=== PATIENT | female | born 1965 | race Caucasian/White ===

== ENCOUNTER 2020-04-24 16:27 | Emergency (ER) | payer OTHER, SELFPAY ==
[2020-04-24 16:32] VITALS: BP 199/92; PULSE 87; RESP 14; TEMP 36.7; O2SAT 98; BMI 26.5
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
[2020-04-24 17:21] VITALS: BP 188/89; PULSE 87; RESP 16; O2SAT 100
[2020-04-24] MEDS: ketorolac 30 mg/mL INJ IM (18:00)
== END 2020-04-24 18:06 | disposition home or self-care (01) ==
PROVIDERS: Emergency Provider Family Medicine
DX: S09.8XXA Other specified injuries of head, initial encounter (principal); Y04.2XXA Assault by strike against or bumped into by another person, initial encounter
CPT/HCPCS: 12345; 70450; 96372; 99282; 99283; J1885

== ENCOUNTER 2021-03-28 13:11 | Emergency (ER) | payer OTHER, SELFPAY ==
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
[2021-03-28 13:41] VITALS: BP 143/115; PULSE 76; RESP 16; TEMP 36.3; O2SAT 97; BMI 35.4
[2021-03-28 13:56] VITALS: BP 130/80; PULSE 99; RESP 16; TEMP 36.5; O2SAT 100
== END 2021-03-28 13:59 | disposition home or self-care (01) ==
LOC: ER 06-22 11:05
PROVIDERS: Emergency Provider Physician Assistant
DX: Z04.2 Encounter for examination and observation following work accident (principal); Y04.2XXA Assault by strike against or bumped into by another person, initial encounter; Y92.230 Patient room in hospital as the place of occurrence of the external cause; Y99.0 Civilian activity done for income or pay
CPT/HCPCS: 99281

== ENCOUNTER → 2021-12-11 10:01 | Outpatient (BNVA) | payer OTHER, SELFPAY | PROVIDERS: Visit Provider Nurse Practitioner Family | DX: Z12.11 Encounter for screening for malignant neoplasm of colon (principal); R53.83 Other fatigue; E03.9 Hypothyroidism, unspecified; Z13.1 Encounter for screening for diabetes mellitus; Z13.6 Encounter for screening for cardiovascular disorders; I10 Essential (primary) hypertension; E78.5 Hyperlipidemia, unspecified; Z76.89 Persons encountering health services in other specified circumstances | CPT/HCPCS: 80053; 80061; 82306; 82607; 82728; 82746; 83550; 84443 ==

== ENCOUNTER → 2023-01-26 10:18 | Outpatient (BNVA) | payer OTHER, SELFPAY | PROVIDERS: PCP Family Medicine; Visit Provider Family Medicine | DX: R73.03 Prediabetes (principal); E78.5 Hyperlipidemia, unspecified; I10 Essential (primary) hypertension; E66.9 Obesity, unspecified; K21.9 Gastro-esophageal reflux disease without esophagitis | CPT/HCPCS: 80053; 80061; 82306; 83036; 83721; 84443; 85025 ==

== ENCOUNTER → 2023-07-12 08:38 | Outpatient (BNVA) | payer OTHER, SELFPAY | PROVIDERS: PCP Family Medicine; Visit Provider Family Medicine | DX: J98.4 Other disorders of lung (principal); J04.0 Acute laryngitis; R01.2 Other cardiac sounds | CPT/HCPCS: 71045 ==

== ENCOUNTER 2023-07-12 09:20 | Outpatient (CLI) | payer OTHER, SELFPAY ==
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
== END 2023-07-12 09:21 | disposition home or self-care (01) ==
LOC: RAD 09:20
PROVIDERS: PCP Family Medicine; Visit Provider Family Medicine
DX: R01.2 Other cardiac sounds (principal); E78.5 Hyperlipidemia, unspecified; R07.9 Chest pain, unspecified; I34.0 Nonrheumatic mitral (valve) insufficiency; I35.1 Nonrheumatic aortic (valve) insufficiency; I07.1 Rheumatic tricuspid insufficiency
CPT/HCPCS: 93306

== ENCOUNTER 2023-08-03 07:04 | Outpatient (CLI) | payer OTHER, SELFPAY ==
[2023-08-03 07:45] VITALS: PULSE 72; RESP 18
[2023-08-03] MEDS: albuterol 2.5 mg/3 mL Neb INHALATION (07:45)
== END 2023-08-03 07:05 | disposition home or self-care (01) ==
LOC: RT 07:05
PROVIDERS: PCP Family Medicine; Visit Provider Internal Medicine Pulmonary Disease
DX: R06.09 Other forms of dyspnea (principal); R94.2 Abnormal results of pulmonary function studies
CPT/HCPCS: 94060; 94726; 94729; J7613

== ENCOUNTER 2023-08-30 10:41 | Outpatient (RCR) | payer OTHER, SELFPAY | END 2023-09-01 23:59 | disposition home or self-care (01) | LOC: SST 10:41 | PROVIDERS: PCP Family Medicine; Visit Provider Otolaryngology | DX: J37.0 Chronic laryngitis (principal); R49.0 Dysphonia; R06.09 Other forms of dyspnea | CPT/HCPCS: 92524 ==

== ENCOUNTER → 2023-09-02 12:30 | Outpatient (BNVA) | payer OTHER, SELFPAY | PROVIDERS: PCP Family Medicine; Visit Provider Internal Medicine Pulmonary Disease | DX: J98.4 Other disorders of lung (principal) | CPT/HCPCS: 36415; 85651; 86038; 86140; 86200; 86225; 86235; 86431 ==

== ENCOUNTER 2023-09-19 08:45 | Outpatient (RCR) | payer OTHER, SELFPAY | END 2023-10-02 23:59 | disposition home or self-care (01) | LOC: SST 08:45 | PROVIDERS: PCP Family Medicine; Visit Provider Otolaryngology | DX: J37.0 Chronic laryngitis (principal); R49.0 Dysphonia; R06.09 Other forms of dyspnea | CPT/HCPCS: 92507 ==

== ENCOUNTER 2023-09-26 13:58 | Outpatient (CLI) | payer OTHER, SELFPAY ==
--- NOTE | 2023-09-26 14:30 | CT_ITS ---
WS: [id number] CT CHEST TECHNIQUE: Noncontrast high-resolution CT of the chest with coronal and sagittal reformatted images. CLINICAL INFORMATION: HRCT COMPARISON: None. DLP: 1360.[address] scans at [facility] use at least one of these dose optimization techniques: automated e xposure control; mA and/or kV adjustment per patient size (includes targeted exams where dose is matc hed to clinical indication); or iterative reconstruction. FINDINGS: Lungs are well aerated. No evidence of interstitial lung disease. No evidence of honeycombi ng. Slight subsegmental atelectasis RIGHT lower lobe medially. Noncalcified nodule LEFT lower lobe me dially measuring 5 mm. Calcified granuloma LEFT lower lobe. Normal caliber thoracic aorta. Aortic calcification. Coronary calcification. No mediastinal or hilar lymphadenopathy. No axillary lymphadenopathy. Adrenal glands are normal. Small esophageal hiatal hernia. IMPRESSION: 1. No evidence of interstitial lung disease. 2. Noncalcified nodule LEFT lower lobe medially measuring 5 mm. Recommend 12-month follow-up. 3. Small esophageal hiatal hernia.
== END 2023-09-26 13:59 | disposition home or self-care (01) ==
LOC: RAD 13:59
PROVIDERS: PCP Family Medicine; Visit Provider Internal Medicine Pulmonary Disease
DX: J98.4 Other disorders of lung (principal); R91.1 Solitary pulmonary nodule; K44.9 Diaphragmatic hernia without obstruction or gangrene
CPT/HCPCS: 71250

== ENCOUNTER 2023-10-03 06:00 | Outpatient (RCR) | payer OTHER, SELFPAY | END 2023-10-14 23:59 | disposition home or self-care (01) | LOC: SST 06:00 | PROVIDERS: PCP Family Medicine; Visit Provider Otolaryngology | DX: J37.0 Chronic laryngitis (principal); R49.0 Dysphonia; R06.09 Other forms of dyspnea | CPT/HCPCS: 92507 ==

== ENCOUNTER 2023-10-13 16:39 | Outpatient (CLI) | payer OTHER, SELFPAY ==
--- NOTE | 2023-10-13 17:00 | CT_ITS ---
WS: [id number] CT PARANASAL SINUSES HISTORY: sinus problems TECHNIQUE: Contiguous 2.5 mm axial images obtained through the sinuses. Images are reconstructed in s agittal and coronal planes. All CT scans at [facility] use at least one of these dose optimiz ation techniques: automated exposure control; mA and/or kV adjustment per patient size (includes targ eted exams where dose is matched to clinical indication); or iterative reconstruction. DLP: 349.76 mGy.cm COMPARISON: None available. Frontal sinuses: Normal. Sphenoid sinus: Normal. Ethmoid sinuses: Well opacified. Frontal ethmoid recess is patent. No disease. Maxillary sinus: There is a small soft tissue septum to the RIGHT maxillary sinus. There is a additio nal fibrous septum the posterior LEFT maxillary sinus. No mass. Ostiomeatal unit: Ostiomeatal units are patent. There is a very small amount of soft tissue thickenin g involving the RIGHT ostiomeatal unit but there is no obstruction. RIGHT deviation of the nasal septum with a small bony spur. Conchal bullosa bilateral middle turbinat es. Monica yosvany appears appropriate. No sinus or wall defects. Mild atrophy frontal lobes. IMPRESSION: 1. No significant sinus disease or air-fluid levels. 2. RIGHT deviation of the nasal septum with a very small bony spur. 3. Ostiomeatal units are patent.
== END 2023-10-13 16:40 | disposition home or self-care (01) ==
PROVIDERS: PCP Family Medicine; Visit Provider Otolaryngology
DX: J34.2 Deviated nasal septum (principal); J34.89 Other specified disorders of nose and nasal sinuses
CPT/HCPCS: 70486

== ENCOUNTER 2023-11-09 11:05 | Day surgery (SDC) | payer OTHER, SELFPAY ==
[2023-11-09] VITALS (12 sets, daily range): BP systolic 131–183; BP diastolic 69–100; PULSE 65–103; RESP 14–24; TEMP 36.4–36.9; O2SAT 91–100; BMI 36.3
--- NOTE | 2023-11-09 11:42 | W.PM.OPSUD ---
Surgery/Procedure H&P Update DATE OF PROCEDURE: November 09, 2023 DATE H&P PERFORMED: 10/25/23 H&P UPDATE INFORMATION: I have reviewed H&P completed within last 30 days, I have examined patient prior to procedure and No changes to prior documentation CHANGES TO PREVIOUS DOCUMENTATION: No changes PREOP DIAGNOSIS: Chronic hoarseness/bilateral vocal cord lesions PRIMARY INDICATION FOR PROCEDURE: Chronic hoarseness with vocal cord lesions PLANNED PROCEDURE: Operation Date: 11/09/23 12:40 Proposed Procedures p Direct Laryngoscopy Direct Larynoscopy w/ Excision 2 Vocal Cord Lesion(Not Applicable) - Nick Henao MD
[2023-11-09] MEDS: sodium chloride 0.9% 1,000 ML 30 ML IV (11:50)
[2023-11-09] MEDS: albuterol 2.5 mg/3 mL Neb (11:50)
[2023-11-09] MEDS: midazolam 1 mg/mL INJ 2 mL 2 MG IVP (12:50)
--- NOTE | 2023-11-09 13:00 | ANES.PREANE2 ---
Pre-Anesthetic Assessment Height/Weight: Height 1.6 m Weight 92.986 kg Temp Pulse Resp BP Pulse Ox O2 Del Method 97.8 F 65 18 160/100 97 Room Air 11/09/23 11:24 11/09/23 11:24 11/09/23 11:24 11/09/23 11:24 11/09/23 11:24 11/09/23 11:27 Preop Diagnosis: Chronic hoarseness/bilateral vocal cord lesions Operation Date: 11/09/23 12:40 Proposed Procedures p Direct Laryngoscopy Direct Larynoscopy w/ Excision 2 Vocal Cord Lesion(Not Applicable) - Nick Henao MD Familial anesthetic complications: None Was Beta Marilyn taken within 24 hours: N/A Was Clonidine taken within 24 hours: N/A Last intake: > 8 hrs Social No alcohol and No tobacco Exam alert, oriented x 3, clear to auscultation bilaterally and regular rate & rhythm Airway Mallampati: Class II Dentition: other (no teeth) CV/HEM Hypertension Metabolic Morbid Obesity Anesthetic Plan ASA status: 2 Anesthesia: General Risk of > 500 ml blood loss (7ml/kg in children): No Medications/Allergies Home Medications Medication Instructions Recorded Confirmed Last Taken Type hydrochlorothiazide 12.5 mg capsule See Rx Instructions .Route 01/26/23 11/08/23 11/09/23 06:00 Rx .COMPLEX #90 caps meloxicam 15 mg tablet 15 mg PO DAILY #30 tabs 01/26/23 11/08/23 11/09/23 06:00 Rx pantoprazole 40 mg tablet,delayed See Rx Instructions .Route 01/26/23 11/08/23 11/09/23 06:00 Rx release .COMPLEX #90 tabs albuterol sulfate 90 mcg/actuation 1 inh inhalation QID PRN shortness 07/18/23 11/08/23 11/08/23 Rx aerosol inhaler (Ventolin HFA) of breath or wheezing #8.5 grams tiotropium bromide 18 mcg capsule 1 cap inhalation DAILY #60 09/02/23 11/08/23 11/08/23 Rx with inhalation device (Spiriva inhalations with HandiHaler) fluoxetine 10 mg capsule See Rx Instructions .Route 10/10/23 11/08/23 11/09/23 06:00 Rx .COMPLEX #30 caps buspirone 10 mg tablet See Rx Instructions .Route 10/26/23 11/08/23 11/09/23 06:00 Rx .COMPLEX #60 tabs Allergies Allergy/AdvReac Type Severity Reaction Status Date / Time No Known Allergies Allergy Verified 11/09/23 11:14 Current Medications Generic Name Dose Route Start Last Admin Trade Name Freq PRN Reason Stop Dose Admin Sodium Chloride 1,000 mls @ 30 mls/hr 11/09/23 11:15 11/09/23 11:50 Sodium Chloride 0.9% IV 11/10/23 11:14 30 mls/hr .Q24H LIUDMILA Administration Midazolam HCl 2 mg 11/09/23 11:11 11/09/23 12:50 Midazolam 1 Mg/Ml Inj 2 Ml IVP 2 mg Q5M PRN Administration Preop Anxiety PFSH Anesthesia Medical History History of sterilization procedure Surgical History H/O bilateral salpingectomy History of delivery Family History Father CAD (coronary artery disease) Grandmother Stroke Mother Hypertension Diabetes Grandfather Cancer Prostate CA Dx later in life. Social History Smoking and tobacco/nicotine status: former use of tobacco/nicotine Quit status (tobacco/nicotine): has tried quititng Alcohol intake: never Substance/Drug Use: never Lives independently: Yes Marital status: Number of children: 2 Current occupational status: employed Current occupation: [employer] Current gender identity: Female Female Reproductive History Spontaneous abortions: No Data Anesthesia Cardiac Studies: Echocardiogram 07/12/23
[2023-11-09] MEDS: ceFAZolin 2,000 MG in sodium chloride 0.9% (plus) 50 ML 100 MG IV (13:28)
--- NOTE | 2023-11-09 14:13 | PM.OP ---
Operative Report Date of procedure: November 09, 2023 Pre-op diagnosis: Chronic hoarseness with vocal cord lesion Post-op diagnosis: Same Post-op findings: Left true vocal cord Rienke's space edema with polyp. Right true vocal cord normal. Anterior commissure normal. Procedure done: Direct suspension microscopic laryngoscopy with stripping of left true vocal cord lesion Implants: No implants Specimens removed/disposition: Left true vocal cord lesion Pathology: Left true vocal cord lesion Surgeon: Nick Henao MD Anesthesia: General and Local Estimated blood loss: 5 mL Complications: No complications encountered Findings: Patient has had chronic hoarseness and on flexible laryngoscopy abnormality noted of true vocal cords and possibly anterior commissure as well. Being brought to the operating room at this time to undergo direct suspension microscopic laryngoscopy and biopsy as warranted. Brief History: 58-year-old female patient with chronic hoarseness noted on flexible exam to have abnormal true vocal cords. Being brought to the operating room at this time to undergo direct suspension microscopic laryngoscopy and biopsy. The procedure its risks and complications were explained in detail. Informed consent was granted. The risks include bleeding and infection and scarring and swelling and bruising and persistent hoarseness and need for additional treatment as well as anesthetic risks. Informed consent was granted and witnessed. Procedure: Description of procedure: The patient was placed on the operating table in supine position. Adequate general endotracheal tube anesthesia was obtained. The table was rotated 90 degrees. Head was dropped 15 degrees to the horizontal. Eyes were taped shut and a head drape was applied in usual fashion. The patient received Ancef IV for prophylaxis and Decadron to help with postoperative edema. A timeout was accomplished identifying the patient and date of and planned procedure and allergies and fire risk and medications given. With all in agreement the procedure continued. A tooth guard was placed over the patient's upper gingiva. An anterior commissure laryngoscope was inserted and used to examine the larynx. All was normal with the exception of what was found to be a fleshy yellowish mass of the left central true vocal cord area. The right cord was normal and the anterior commissure was normal. The arytenoid areas were normal. The scope was then suspended from a Terry stand. With microscope brought in visualization was noted and the mass involving the left true vocal cord was grasped and the mass was stripped of the left vocal cord. There was significant Ranke's space edema noted as well as the polyp of the cord. There was nothing suspicious to be a malignancy. Multiple specimens were accomplished with the cup forceps. Bleeding was controlled with a cottonoids soaked in one-to-one thousand epinephrine. Then an LTA with 1% lidocaine was dispensed to the larynx and glottic area and subglottic area. The cottonoid was removed. No bleeding was encountered. The area was suctioned. The scope was taken down from suspension and removed. Examination with the scope being removed did not reveal any other pathology. The throat was suctioned with Yankauer suction. The tooth guard was removed. Head drape and tape were removed. Patient was then returned to the anesthesiologist with head in normal position for wake-up and extubation. She tolerated the procedure well and had an estimated blood loss of 5 mL or less. Arrived in recovery in stable condition.
[2023-11-09] MEDS: EPINEPHrine 1 mg/mL INJ XX (14:17)
[2023-11-09] MEDS: fentaNYL 50 mcg/mL INJ 2mL IVP (14:29)
--- NOTE | 2023-11-09 15:45 | ANE.PACU2 ---
Inpatient post-anesthesia follow up: Airway intact: Yes Vital signs: Temperature 98.5 F Pulse Rate 70 Respiratory Rate 17 Blood Pressure 141/78 Pulse Oximetry 92 Oxygen Delivery Me thod Room Air Oxygen Flow Rate 2 Fraction of Inspir ed Oxygen Hydration adequate: Yes Nausea and vomiting: No Pain level: 1 Mental status: Baseline
== END 2023-11-09 15:45 | disposition home or self-care (01) ==
PROVIDERS: PCP Family Medicine; Visit Provider Otolaryngology
PROC: 0CJS8ZZ Inspection of Larynx, Via Natural or Artificial Opening Endoscopic (ICD-10-PCS; CPT 31541; principal; 2023-11-09 12:30)
DX: J38.1 Polyp of vocal cord and larynx (principal)
CPT/HCPCS: 31541; 88305; J0171; J0330; J0690; J1100; J2250; J2405; J2704; J2710; J3010; J3490; J7030; J7613

== ENCOUNTER → 2024-02-14 08:56 | Outpatient (BNVA) | payer SELFPAY | PROVIDERS: PCP Family Medicine; Visit Provider Family Medicine | DX: E55.9 Vitamin D deficiency, unspecified (principal); I10 Essential (primary) hypertension; J37.0 Chronic laryngitis; J98.4 Other disorders of lung; R06.09 Other forms of dyspnea; F41.1 Generalized anxiety disorder | CPT/HCPCS: 80053; 80061; 82306; 82607; 83721; 84439; 84443 ==

== ENCOUNTER 2024-09-25 14:22 | Emergency (ER) | payer OTHER, SELFPAY ==
[2024-09-25 14:25] VITALS: BP 165/85; PULSE 80; RESP 17; TEMP 36.7; O2SAT 93; BMI 35.4
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
[2024-09-25 15:43] LABS: Basophils % 0.5 %; Eosinophils % 0.5 %; Lymphocytes # 2.3 10^3/uL (0.8-4.8); Lymphocytes % 26.3 %; Mean Corpuscular HGB Conc 32.6 g/dL (30-55); Mean Corpuscular Hemoglobin 28.3 pg (27-33); Mean Platelet Volume 10.5 fL (7.4-10.4); Monocytes % 10.7 %; Neutrophils # 5.48 10^3/uL (1.8-7.7); Neutrophils % 61.7 %; Nucleated Red Blood Cells % 0 %; Platelet Count 268 10^3/cmm (157-399); Red Blood Count 4.94 10^6/uL (3.85-5.65); Red Cell Distribution Width 12.7 % (12.1-15.1); White Blood Count 8.87 10^3/uL (3.29-11.43)
[2024-09-25 16:07] LABS: Alanine Aminotransferase 46 U/L (0-33); Albumin Level 4.2 g/dL (3.5-5.2); Alkaline Phosphatase 131 U/L (35-105); Anion Gap 13.5 (5-19); Aspartate Amino Transferase 28 U/L (0-32); Blood Urea Nitrogen 13 mg/dL (6-20); Calcium 9.1 mg/dL (8.5-10.5); Carbon Dioxide 28 mmol/L (22-29); Chloride 100 mmol/L (98-107); Creatinine Clr Calc Pharmacy 109.2728; Globulin 3.1 g/dL (1.3-4.6); Glomerular Filtration Rate 102.7 mL/min (90-130); Glucose 106 mg/dL (65-115); Osmolality Calculated 287 mOsm/kg (285-295); Potassium 3.5 mmol/L (3.5-5.1); Sodium 138 mmol/L (136-145); Total Bilirubin 0.2 mg/dL (0.15-1.2); Total Protein 7.3 g/dL (6.6-8.7)
[2024-09-25 17:04] VITALS: BP 148/75; PULSE 72; RESP 16; O2SAT 95
[2024-09-25 17:34] VITALS: BP 148/78; PULSE 65; RESP 16; O2SAT 96
== END 2024-09-25 17:29 | disposition home or self-care (01) ==
PROVIDERS: Emergency Provider Family Medicine; PCP Family Medicine
DX: R49.0 Dysphonia (principal); M54.2 Cervicalgia; T71.9XXA Asphyxiation due to unspecified cause, initial encounter; Z87.891 Personal history of nicotine dependence; Y04.8XXA Assault by other bodily force, initial encounter
CPT/HCPCS: 36415; 70491; 72125; 80053; 85025; 99284

== ENCOUNTER 2024-12-03 12:47 | Outpatient (CLI) | payer OTHER, SELFPAY ==
--- NOTE | 2024-12-03 | ECG_ITS ---
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 Interpretive Statements EXERCISE STRESS TEST: EXERCISE DATA: The patient was exercised by Gonzalo protocol. Baseline heart rate was 64 beats per minute. Baseline blood pressure was 154/86 millimeters of mercury. Maximal predicted heart rate was 161 beats per minute. Maximum heart rate achieved was 161, which was 103% of the maximum predicted heart rate. Maximum blood pressure was 198/114 millimeters of mercury. Total exercise time was 6 minutes. Maximum METs achieved was 7.0 The reason for ending the test was maximal effort achieved. The patient complained of shortness of breath during the stress test, which then resolved at the end of the test. ELECTROCARDIOGRAM: BASELINE: Showed sinus rhythm, normal axis, no significant ST-T changes at the baseline noted. [] EXERCISE: At the peak exercise level, [] No significant ST-T changes suggestive of ischemia noted. [] RECOVERY: During the recovery period, heart rate dropped appropriately. No significant ST-T changes in the recovery suggestive of ischemia noted. [] CONCLUSION: 1. Exercise capacity is fair 2. Heart rate response was appropriate 3. Blood pressure response was hypertensive 4. Symptoms not suggestive of ischemia. 5. Stress test is negative for ischemia. Electronically Signed On 12-20-2024 10:47:34 CDT by Peter Farmer M.D. [email or web address]
[2024-12-03 13:01] VITALS: BMI 38.6
[2024-12-03 13:25] VITALS: BP 159/84; PULSE 95
== END 2024-12-03 12:48 | disposition home or self-care (01) ==
PROVIDERS: PCP Family Medicine; Visit Provider Family Medicine
DX: R06.09 Other forms of dyspnea (principal); R07.9 Chest pain, unspecified; R93.1 Abnormal findings on diagnostic imaging of heart and coronary circulation
CPT/HCPCS: 93017